=== PATIENT | male | born 1980 | race Caucasian/White ===

== ENCOUNTER 2017-02-03 23:08 | Emergency (ER) | payer SELFPAY ==
[2017-02-04 01:56] VITALS: BP 117/97
== END 2017-02-04 01:56 | disposition home or self-care (01) ==
LOC: ED 23:08
DX: S90.822A Blister (nonthermal), left foot, initial encounter (principal); S90.821A Blister (nonthermal), right foot, initial encounter; B35.3 Tinea pedis; F12.10 Cannabis abuse, uncomplicated; X58.XXXA Exposure to other specified factors, initial encounter; Y92.89 Other specified places as the place of occurrence of the external cause; Y93.89 Activity, other specified; Y99.8 Other external cause status

== ENCOUNTER 2017-02-11 13:43 | Emergency (ER) | payer SELFPAY ==
[~2017-02-11] VITALS: Ht 167.6 cm; Wt 73.9 kg
[2017-02-11 17:22] VITALS: BP 126/81
== END 2017-02-11 17:22 | disposition home or self-care (01) ==
LOC: ED 13:43
DX: S01.81XA Laceration without foreign body of other part of head, initial encounter (principal); S06.0X1A Concussion with loss of consciousness of 30 minutes or less, initial encounter; S13.4XXA Sprain of ligaments of cervical spine, initial encounter; W22.8XXA Striking against or struck by other objects, initial encounter; Y93.89 Activity, other specified; Y92.89 Other specified places as the place of occurrence of the external cause; Y99.8 Other external cause status
CPT/HCPCS: 90715

== ENCOUNTER 2017-03-07 14:09 | Emergency (ER) | payer MEDICAID ==
[~2017-03-07] VITALS: Ht 167.6 cm; Wt 74.0 kg
[2017-03-07 14:15] VITALS: BP 127/84; Ht 167.6 cm; Wt 74.0 kg
== END 2017-03-07 15:56 | disposition home or self-care (01) ==
LOC: ED 14:09
DX: L03.011 Cellulitis of right finger (principal); W57.XXXA Bitten or stung by nonvenomous insect and other nonvenomous arthropods, initial encounter